=== PATIENT | female | born 1955 | race Caucasian/White ===

== ENCOUNTER → 2016-06-22 | Outpatient (CLI) | payer BC ==
--- NOTE | 2016-06-22 13:35 | MM ---
Reason for exam: clinical finding. Last mammogram was performed 1 year and 1 month ago. History: Patient is nulliparous. Family history of premenopausal breast cancer in maternal aunt at age 40. Benign ultrasound-guided cyst aspiration of the right breast, April 26, 1999. Took hormonal contraceptives for 6 years. Taking progesterone for 2 years beginning at age 53. Physical Findings: Nurse Summary: 0.5-1cm nodule in the right breast at 11 o'clock, 3 o'clock and 5 o'clock and a 0.5-2cm nodule in the left breast at 11-1 o'clock and 3-5 o'clock (nurse kp). MG 3D Diag Mammo W/Cad SEBASTIAN Bilateral CC and MLO view(s) were taken. Prior study comparison: June 11, 2015, bilateral US breast workup SEBASTIAN. May 25, 2015, bilateral MG 3d screening mammo w/cad. April 24, 2014, bilateral MG screening mammo w CAD. The breast tissue is heterogeneously dense. This may lower the sensitivity of mammography. There is chronic nodularity bilaterally. Enlarging large subareolar mass on the left breast superiorly. Regional calcifications redemonstrated in both breasts. A few nodules on the right breast have also increased in size. Multiple bilateral palpable markers. These results were verbally communicated with the patient and result sheet given to the patient on 06/22/16. ASSESSMENT: Incomplete: need additional imaging evaluation, BI-RAD 0 RECOMMENDATION: Ultrasound of both breasts.
--- NOTE | 2016-06-22 13:47 | USB ---
Reason for exam: additional evaluation requested from abnormal screening. History: Patient is nulliparous. Family history of premenopausal breast cancer in maternal aunt at age 40. Benign ultrasound-guided cyst aspiration of the right breast, April 26, 1999. Took hormonal contraceptives for 6 years. Taking progesterone for 2 years beginning at age 53. US Breast BILAT Right breast ultrasound includes all four quadrants, the retroareolar region and axilla. Finding demonstrates a 1.2 x 0.9 x 0.3cm cystic cluster versus complex cyst at 12 o'clock, new for which a 6 month follow up is recommended, a 0.5 x 0.4 x 0.5cm oval, cystic lesion at 1 o'clock, a 0.8 x 0.6 x 0.6cm oval, possible mildly complex cyst at 2 o'clock versus 7 x 7 x 6mm previously for which a 6 month follow up is recommended, a 1.4 x 0.7 x 0.6cm oval, cystic cluster or complex cyst at 3 o'clock, palpable, not previously seen for which a biopsy is recommended, a 1.0 x 1.3 x 0.7cm cluster, mixed lesion at 4 o'clock versus 9 x 6 x 5mm previously, palpable for which a biopsy is recommended, a 0.9 x 0.9 x 0.6cm cluster, mixed lesion at 5 o'clock for which a 6 month follow up is recommended , a 0.5 x 0.5 x 0.4cm cystic lesion at 8 o'clock, a 0.7 x 0.7 x 0.5cm cystic lesion at 10 o'clock and a 0.7 x 0.6 x 0.5cm cystic lesion at 11 o'clock, palpable. Left breast ultrasound includes all four quadrants, the retroareolar region and axilla. Finding demonstrates a 3.4 x 4.0 x 1.7cm large lobulated cyst at 12 o'clock, a 1.5 x 1.0 x 0.9cm oval, cystic lesion at 12 o'clock, a 1.3 x 0.8 x 0.6cm cyst cluster versus complex cyst at 1 o'clock for which a 6 month follow up is recommended, a 0.9 x 1.1 x 0.7cm oval cluster at 2 o'clock versus 7 x 9 x 6mm previously for which a 6 month follow up is recommended, a 0.8 x 0.3 x 0.4cm lobulated, hypoechoic lesion at 3 o'clock, new, for which a 6 month follow up is recommended, a 0.8 x 0.7 x 0.4cm oval, hypoechoic lesion at 5 o'clock, palpable , possibly a cyst but located deep for which a 6 month follow up is recommended and a 0.6 x 0.8 x 0.6cm cluster at 7 o'clock, new, for which a 6 month follow up is recommended. These results were verbally communicated with the patient and result sheet given to the patient on 06/22/16. ASSESSMENT: Suspicious, BI-RAD 4 RECOMMENDATION: 1. Surgical consultation and ultrasound core biopsy of the right breast. (2 palpable sites, 3 o'clock and 4 o'clock) 2. Ultrasound of both breasts in [address] Fraser with mammographic findings and has scheduled an appointment for the patient for 07/20/16 at 10:[address] Dooley. Biopsy scheduled for 07/07/16 at 11:20. PRELIMINARY REPORT CALLED AND FAXED TO DR. DOOLEY ON 06/22/16 AT 300/TP. MTDD
== END | disposition home or self-care (01) ==
LOC: RADMAMWWP 08:41
PROVIDERS: ATTEND Obstetrics & Gynecology
DX: N63 Unspecified lump in breast (principal); R92.8 Other abnormal and inconclusive findings on diagnostic imaging of breast; Z80.3 Family history of malignant neoplasm of breast
CPT/HCPCS: 76641; G0204; G0279

== ENCOUNTER → 2016-07-07 | Day surgery (SDC) | payer BC ==
[~2016-07-07] MED LIST: BACITRACIN OINT 1 EACH PACKET TOPICAL ONE; LIDOCAINE 1% INJ 10MG/ML (20 ML MDV) ONE; LIDOCAINE 1%-EPI 1:100,000 20 ML VIAL ONE
--- NOTE | 2016-07-07 12:02 | USB ---
EXAMINATION TYPE: US breast aspiration single RT DATE OF EXAM: 07/07/2016 COMPARISON: Previous ultrasound dated 06/22/2016 CLINICAL HISTORY: R92.8 ABN MAMMOGRAM. There is some benefits of the procedure were explained to the patient. Using standard sterile technique and 1% Xylocaine with and without epinephrine for anesthesia, a cluster of cysts in the 3:00 position of the right breast was aspirated for scant amount of clear fluid. The lesion disappeared. A second cluster in the 4:00 position in the right breast was also aspirated. The lesion disappeared. Contrast was not deposited as the lesion could not be identified following aspiration. Patient tolerated procedure well. Estimated blood loss was less than 1 cc. Pathology is pending. IMPRESSION: Successful cyst aspiration of 2 clusters of cysts in the 3 and 4:00 position of the right breast. RECOMMENDATION: Six-month ultrasound of the right breast Pathology Results: Benign BREAST, RIGHT, SITE A AT 3:00 AND 4:00, FINE NEEDLE CYST ASPIRATE: CYST MACROPHAGES, DUCT EPITHELIAL CELLS AND APOCRINE CELLS CONSISTENT WITH PROLIFERATIVE FIBROCYSTIC CHANGE. RECOMMEND CLINICAL AND IMAGING CORRELATION AND IF THE RESULTS ARE DISCREPANT, FOLLOW UP INDICATED. Recommendation Follow up ultrasound of the right breast in 6 months. GISSEL
== END ==
LOC: RADUSWWP 10:36
PROVIDERS: ATTEND Surgery
DX: N60.01 Solitary cyst of right breast (principal); R92.8 Other abnormal and inconclusive findings on diagnostic imaging of breast
CPT/HCPCS: 88108; 88305; 76942; 19000; J2001

== ENCOUNTER → 2017-07-27 | Outpatient (CLI) | payer BC ==
--- NOTE | 2017-07-30 07:21 | MM ---
Reason for exam: additional evaluation requested from prior study. Last mammogram was performed 1 year and 1 month ago. History: Patient is postmenopausal, has history of other cancer at age 49, and is nulliparous. Family history of premenopausal breast cancer in maternal aunt at age 40. Benign US breast aspiration single RT of the right breast, July 07, 2016. Benign ultrasound-guided cyst aspiration of the right breast, April 26, 1999. Took hormonal contraceptives for 6 years. Took progesterone for 2 years beginning at age 53. Physical Findings: Nurse did not find any significant physical abnormalities on exam. MG 3D Diag Mammo W/Cad SEBASTIAN Bilateral CC and MLO view(s) were taken. Prior study comparison: June 22, 2016, bilateral MG 3d diag mammo w/cad SEBASTIAN. May 25, 2015, bilateral MG 3d screening mammo w/cad. The breast tissue is heterogeneously dense. This may lower the sensitivity of mammography. No significant new findings when compared with previous films. These results were verbally communicated with the patient and result sheet given to the patient on 07/27/17. ASSESSMENT: Benign, BI-RAD 2 RECOMMENDATION: Routine screening mammogram of both breasts in 1 year.
== END | disposition home or self-care (01) ==
LOC: RADMAMWWP 14:51
PROVIDERS: ATTEND Surgery
DX: R92.8 Other abnormal and inconclusive findings on diagnostic imaging of breast (principal)
CPT/HCPCS: 77062; 77066

== ENCOUNTER → 2018-05-06 | Outpatient (CLI) | payer MEDICARE ==
[2018-05-06 18:03] LABS: LDL Cholesterol,Calculated 128.4 mg/dL (0.0-131.0); VLDL Calculation 13.6 mg/dL (5.00-40.00)
== END ==
LOC: LABWHC1 08:52
PROVIDERS: ATTEND Nurse Practitioner Adult Health
DX: E78.5 Hyperlipidemia, unspecified (principal)
CPT/HCPCS: 36415; 80061

== ENCOUNTER → 2019-09-18 | Outpatient (CLI) | payer MEDICARE ==
--- NOTE | 2019-09-22 08:54 | MM ---
Reason for exam: screening (asymptomatic). Last mammogram was performed 1 year and 1 month ago. History: Patient is postmenopausal, has history of other cancer at age 49, and is nulliparous. Family history of premenopausal breast cancer in maternal aunt at age 40. Benign US breast aspiration single RT of the right breast, July 07, 2016. Benign ultrasound-guided cyst aspiration of the right breast, April 26, 1999. Took hormonal contraceptives for 6 years. Took progesterone for 2 years beginning at age 53. Physical Findings: A clinical breast exam by your physician is recommended on an annual basis and results should be correlated with mammographic findings. MG 3D Screening Mammo W/Cad Bilateral CC and MLO view(s) were taken. Prior study comparison: August 07, 2018, bilateral MG 3d screening mammo w/cad. July 27, 2017, bilateral MG 3d diag mammo w/cad SEBASTIAN. The breast tissue is heterogeneously dense. This may lower the sensitivity of mammography. There is chronic nodularity bilaterally. Stable grouped calcifications lateral left breast. No significant changes when compared with prior studies. ASSESSMENT: Benign, BI-RAD 2 RECOMMENDATION: Routine screening mammogram of both breasts in 1 year.
== END | disposition home or self-care (01) ==
LOC: RADMAMWWP 12:31
PROVIDERS: ATTEND Obstetrics & Gynecology
DX: Z12.31 Encounter for screening mammogram for malignant neoplasm of breast (principal)
CPT/HCPCS: 77063; 77067

== ENCOUNTER 2020-09-26 08:59 | Emergency (ER) | payer MEDICARE ==
[2020-09-26 09:37] VITALS: RESP 16
[2020-09-26] MEDS ORDERED: LIDOCAINE 5% PATCH TOPICAL STA (10:35)
[2020-09-26] MEDS ORDERED: KETOROLAC 15 MG/ML 1 ML VIAL IM STA (10:35)
--- NOTE | 2020-09-26 10:47 | ED ---
Back Pain HPI - General Chief Complaint: Back Pain/Injury Stated Complaint: Sciatic Nerve Pain Time Seen by Provider: 09/26/20 10:18 Source: patient Limitations: no limitations - History of Present Illness Initial Comments: 65-year-old female with history of chronic back pain presenting to the emergency department with a chief complaint of back pain. Patient reports the pain has been ongoing for approximately 5 days now. States that day prior to that she was working on the yard, cutting grass and spraying weeds which may have exacerbated her pain. States her pain is located in the right paraspinal region of the lumbar spine and is radiating down along the posterior aspect of her right lower extremity. States the pain is exacerbated with any left and right rotation. Also worse whenever she is laying down. She went to an urgent care where she was given prednisone and discharge with no improvement in symptoms. States she went to her primary care physician who gave her mobic and no improvement in symptoms. States she is currently waiting insurance approval to obtain an MRI of the lumbar spine. She denies any direct trauma to the back. Denies any saddle anesthesia, urinary or bowel incontinence. - Related Data Home Medications Medication Instructions Recorded Confirmed Cetirizine HCl [Zyrtec Chewable] 10 mg PO DAILY 01/21/14 01/23/14 Cyclobenzaprine [Flexeril] 10 mg PO BID 01/21/14 01/23/14 HYDROcodone/APAP 5-325MG [[place] 5] 1 each PO Q6HR PRN 01/21/14 01/23/14 estradioL [Estrace] 0.5 mg PO DAILY 01/21/14 01/23/14 medroxyPROGESTERone [Provera] 2.5 mg PO DAILY 01/21/14 01/23/14 Previous Rx's Medication Instructions Recorded Cyclobenzaprine [Flexeril] 5 mg PO TID PRN #15 tablet 09/26/20 Allergies Allergy/AdvReac Type Severity Reaction Status Date / Time No Known Allergies Allergy Verified 01/23/14 10:49 Review of Systems ROS Statement: Those systems with pertinent positive or pertinent negative responses have been documented in the HPI. ROS Other: All systems not noted in ROS Statement are negative. Past Medical History Past Medical History: Supraventricular Tachycardia (SVT) History of Any Multi-Drug Resistant Organisms: None Reported Additional Past Surgical History / Comment(s): cardiac ablation 2004 Smoking Status: Former smoker Past Alcohol Use History: None Reported Past Drug Use History: None Reported General Exam Limitations: no limitations General appearance: alert, in no apparent distress Head exam: Present: atraumatic, normocephalic, normal inspection Eye exam: Present: normal appearance Pupils: Present: normal accommodation ENT exam: Present: normal exam, normal oropharynx, mucous membranes moist Neck exam: Present: normal inspection, full ROM. Absent: tenderness, lymphadenopathy Respiratory exam: Present: normal lung sounds bilaterally. Absent: respiratory distress Cardiovascular Exam: Present: regular rate, normal rhythm, normal heart sounds. Absent: systolic murmur GI/Abdominal exam: Present: soft. Absent: tenderness, guarding, rebound Extremities exam: Present: normal inspection, full ROM, normal capillary refill. Absent: tenderness Back exam: Present: normal inspection, full ROM, tenderness, paraspinal tenderness, other (Positive leg raise test on the right side.). Absent: CVA tenderness (R), CVA tenderness (L), muscle spasm, vertebral tenderness Neurological exam: Present: alert, oriented X3 Psychiatric exam: Present: normal affect, normal mood Skin exam: Present: warm, dry, intact, normal color Course Vital Signs 09/26/ 09:34 Temperature 98.0 F Pulse Rate 68 Respiratory 16 Rate Blood Pressure 122/70 O2 Sat by Pulse 98 Oximetry Medical Decision Making - Medical Decision Making 65-year-old female with history of chronic back pain presenting to the emergency department with a chief complaint of back pain. On physical examination, right- sided paraspinal tenderness in the lumbar spine radiating along the right lower extremity. Sciatica-like pattern. This is her acute on chronic pain. No concern for cauda equina. Patient was given Toradol which she requested. Also given Lidoderm patch. This helped improve her symptoms. I will discharge her with a Flexeril starter pack. We'll also give a prescription for Flexeril. X- ray of the lumbar spine is unremarkable. She has an MRI of the spine pending. Patient will follow-up with an verifying specialist. Return parameters were thoroughly discussed with patient is attending agreeable. Disposition Clinical Impression: Strain of lumbar region, Mechanical back pain Disposition: HOME SELF-CARE Condition: Stable Instructions (If sedation given, give patient instructions): Acute Low Back Pain (ED) Additional Instructions: Follow-up with verifying specialist. Take prescribed medication as directed. Return to emergency department if symptoms worsen. Prescriptions: Cyclobenzaprine [Flexeril] 5 mg PO TID PRN #15 tablet PRN Reason: Muscle Spasm Is patient prescribed a controlled substance at d/c from ED?: No Referrals: Tera Oden MD [Primary Care Provider] - 1-2 days Paul Bass DO [Doctor of Osteopathic Medicine] - 1-2 days Time of Disposition: 11:27
--- NOTE | 2020-09-26 10:59 | XR ---
EXAMINATION TYPE: XR lumbar spine 2 or 3V DATE OF EXAM: 09/26/2020 CLINICAL HISTORY: pain TECHNIQUE: Three views of the lumbar spine are submitted. COMPARISON: None. FINDINGS: There are 5 lumbar type vertebral bodies identified. The lumbar spine shows satisfactory alignment w ithout evidence of acute fracture or dislocation. Vertebral body heights are within normal limits. Mild degenerative disc space narrowing. Mild ventral spondylosis. The overlying soft tissue appears unremarkable. IMPRESSION: No acute fracture or dislocation is seen in the lumbar spine. ICD 10 NO FRACTURE, INITIAL EVALUATION
[2020-09-26] MEDS ORDERED: CYCLOBENZAPRINE 10MG STARTER 3 TAB BTL PO STA (11:25)
[2020-09-26 12:04] VITALS: BP 124/72; PULSE 74; TEMP 98.3
== END 2020-09-26 12:04 | disposition home or self-care (01) ==
LOC: EC 08:59
DX: S39.012A Strain of muscle, fascia and tendon of lower back, initial encounter (principal); Z87.891 Personal history of nicotine dependence; Z79.899 Other long term (current) drug therapy; X58.XXXA Exposure to other specified factors, initial encounter
CPT/HCPCS: 72100; 96372; 99283; J1885

== ENCOUNTER → 2020-11-26 | Outpatient (CLI) | payer MEDICARE ==
--- NOTE | 2020-11-29 11:56 | MM ---
Reason for exam: screening (asymptomatic). Last mammogram was performed 1 year and 2 months ago. History: Patient is postmenopausal, has history of other cancer at age 49, and is nulliparous. Family history of premenopausal breast cancer in maternal aunt at age 40. Benign US breast aspiration single RT of the right breast, July 07, 2016. Benign ultrasound-guided cyst aspiration of the right breast, April 26, 1999. Took hormonal contraceptives for 6 years. Took progesterone for 2 years beginning at age 53. Physical Findings: A clinical breast exam by your physician is recommended on an annual basis and results should be correlated with mammographic findings. MG 3D Screening Mammo W/Cad Bilateral CC and MLO view(s) were taken. Prior study comparison: September 18, 2019, bilateral MG 3d screening mammo w/cad. August 07, 2018, bilateral MG 3d screening mammo w/cad. The breast tissue is heterogeneously dense. This may lower the sensitivity of mammography. Stable benign calcifications upper outer quadrant. There is no discrete abnormality. No significant changes when compared with prior studies. ASSESSMENT: Benign, BI-RAD 2 RECOMMENDATION: Routine screening mammogram of both breasts in 1 year.
== END | disposition home or self-care (01) ==
LOC: RADMAMWWP 08:44
PROVIDERS: ATTEND Obstetrics & Gynecology
DX: Z12.31 Encounter for screening mammogram for malignant neoplasm of breast (principal); Z80.3 Family history of malignant neoplasm of breast
CPT/HCPCS: 77063; 77067

== ENCOUNTER → 2021-04-14 | Outpatient (CLI) | payer MEDICARE ==
--- NOTE | 2021-04-14 11:56 | XR ---
EXAMINATION TYPE: XR chest 2V DATE OF EXAM: 04/14/2021 COMPARISON: NONE TECHNIQUE: PA and lateral views submitted. HISTORY: Pain FINDINGS: The lungs are clear and there is no pneumothorax, pleural effusion, or focal pneumonia. There is a lobulated margin of the left hilum. Hyperinflation suggests COPD. Hypertrophic change of the spine. M ild hyperinflation. Heart size normal. No overt failure. IMPRESSION: 1. Lobulated margins in the left hilum. Recommend CT chest to exclude mass or adenopathy. 2. COPD.
== END | disposition home or self-care (01) ==
LOC: RADXRMAIN 11:38
PROVIDERS: ATTEND Family Medicine
DX: J44.9 Chronic obstructive pulmonary disease, unspecified (principal); R91.8 Other nonspecific abnormal finding of lung field
CPT/HCPCS: 71046

== ENCOUNTER → 2021-04-22 | Outpatient (CLI) | payer MEDICARE ==
--- NOTE | 2021-04-27 11:16 | USB ---
Reason for exam: clinical finding. History: Patient is postmenopausal, has history of other cancer at age 49, and is nulliparous. Family history of premenopausal breast cancer in maternal aunt at age 40. Benign US breast aspiration single RT of the right breast, July 07, 2016. Benign ultrasound-guided cyst aspiration of the right breast, April 26, 1999. Took hormonal contraceptives for 6 years. Took progesterone for 2 years beginning at age 53. Indicated problem(s): pain in the left breast. Physical Findings: A clinical breast exam by your physician is recommended on an annual basis and results should be correlated with mammographic findings. US Breast LT Left complete breast ultrasound includes all four quadrants, the retroareolar region and axilla. Finding demonstrates a 0.5 x 0.3 x 0.4cm round, cystic lesion at 1 o'clock, simple cyst, a 0.6 x 0.3 x 0.4cm mixed lesion at 3 o'clock, too small to characterize, probable debris filled cyst and a 0.4 x 0.3 x 0.4cm cystic lesion at 7 o'clock, simple cyst. ASSESSMENT: Probably benign, BI-RAD 3 RECOMMENDATION: Ultrasound of the left breast in 6 months. Manage on a clinical basis with regard to pain.
== END | disposition home or self-care (01) ==
LOC: RADUSWWP 08:15
PROVIDERS: ATTEND Family Medicine
DX: N64.4 Mastodynia (principal); Z78.0 Asymptomatic menopausal state; Z80.3 Family history of malignant neoplasm of breast

== ENCOUNTER → 2021-04-25 | Outpatient (CLI) | payer MEDICARE ==
--- NOTE | 2021-04-25 08:55 | CT ---
EXAMINATION TYPE: CT chest wo con DATE OF EXAM: 04/25/2021 INDICATION: Nodule CT DLP: 478 mGy.cm Automated Exposure Control for Dose Reduction was Utilized. TECHNIQUE AND CONTRAST: CT scan of the chest is performed without IV contrast administration. COMPARISON: X-ray dated 04/14/2021 FINDINGS: 8 mm pleural-based nodule is seen at the medial aspect of the right lower lobe, best appreciated in i mage #49, series 5. Unremarkable lungs otherwise. Patent central airways. No pleural or pericardial e ffusion. No gross cardiomegaly. Scattered arterial atherosclerotic calcifications with minimal pérez ry arterial calcifications. No pathologically lymph nodes in the chest. Bilateral thyroid lobe densities, please correlate with t hyroid ultrasound results. Scattered hepatic hypodensities likely representing hepatic cysts. Recomme nd correlation with liver ultrasound results. No gross aggressive bone lesion. IMPRESSION: Right lower lobe pleural-based 8mm nodule as described above, for follow-up CT scan in 3 months for r eassessment. Other incidental findings and recommendations as described above.
== END | disposition home or self-care (01) ==
LOC: RADCTMAIN 07:00
PROVIDERS: ATTEND Family Medicine
DX: R91.1 Solitary pulmonary nodule (principal)
CPT/HCPCS: 71250

== ENCOUNTER → 2021-05-17 | Outpatient (CLI) | payer MEDICARE ==
--- NOTE | 2021-05-17 12:07 | US ---
EXAMINATION TYPE: US abdomen complete DATE OF EXAM: 05/17/2021 COMPARISON: Chest CT 04/25/2021 CLINICAL HISTORY: 66-year-old female D13.4. Liver cyst on CT scan TECHNIQUE: Multiple sonographic images of the abdomen are obtained. FINDINGS: EXAM MEASUREMENTS: Liver Length: 13 cm Gallbladder Wall: .2 cm CBD: .5 cm Spleen: .8 cm Right Kidney: 9.9 x 3.8 x 4.6 cm Left Kidney: 11.0 x 5.6 x 3.7 cm Pancreas: wnl Liver: Anechoic area measuring 1.2 x 1.0 x 1.4 cm at the right hepatic dome. A 1.2 cm cyst anterior left liver lobe. Gallbladder: wnl Evidence for sonographic Romeo's sign: No CBD: wnl Spleen: wnl Right Kidney: wnl Left Kidney: wnl Upper IVC: wnl Abd Aorta: wnl IMPRESSION: A benign 1.4 cm cyst is noted at the right hepatic dome and a 1.2 cm cyst in the left liver lobe. Oth er hypodense lesions seen on CT not well depicted by ultrasound but also likely represent cysts. No gallstones or biliary ductal dilatation.
== END | disposition home or self-care (01) ==
LOC: RADUSWWP 09:36
PROVIDERS: ATTEND Family Medicine
DX: K76.89 Other specified diseases of liver (principal)
CPT/HCPCS: 76700

== ENCOUNTER → 2021-11-08 | Outpatient (CLI) | payer MEDICARE ==
--- NOTE | 2021-11-08 09:36 | CT ---
EXAMINATION TYPE: CT chest wo con CT DLP: 170.90 mGycm, Automated exposure control for dose reduction was used. DATE OF EXAM: 11/08/2021 9:24 AM COMPARISON: CT chest 04/25/2021. CLINICAL INDICATION:Female, 66 years old with history of R91.1 pulmonary nodule; TECHNIQUE: Multiple axial images were obtained through the chest without IV contrast. Lack of IV or o ral contrast limits evaluation of solid and hollow organ viscera. FINDINGS: LUNGS/ PLEURA: No pneumothorax, pleural effusion, or focal consolidation. Left upper lobe 4.4 mm nonc alcified pulmonary nodule which is stable from prior examination (series 4, image 23). Stable [address] eural-based nodule along the medial aspect of the right lower lobe (series 4, image 37). No new pulm onary nodules. AIRWAY: Patent and unremarkable.. HEART: Size within normal limits. No pericardial effusion. Minimal coronary artery calcifications. MEDIASTINUM: No gross evidence of adenopathy. VASCULATURE: No aortic aneurysm. MUSCULOSKELETAL: No acute osseous abnormalities SOFT TISSUES/LYMPH NODES: Unremarkable. LOWER NECK: Subcentimeter hypodense nodules within the thyroid gland. UPPER ABDOMEN: Stable scattered hepatic hypodensities likely representing hepatic cysts. This can be further evaluated with ultrasound as clinically indicated. IMPRESSION: Stable pulmonary nodules from prior examination on 04/25/2021. No new or enlarging pulmonary nodules. Follow-up examination in one year is recommended to assess for stability.
== END | disposition home or self-care (01) ==
LOC: RADCTMAIN 08:40
PROVIDERS: ATTEND Family Medicine
DX: R91.8 Other nonspecific abnormal finding of lung field (principal)
CPT/HCPCS: 71250

== ENCOUNTER → 2021-11-10 | Outpatient (CLI) | payer MEDICARE ==
--- NOTE | 2021-11-10 10:46 | USB ---
Reason for Exam: Follow-up at short interval from prior study. Patient History: Menarche at age 11. Patient has no children. Right ovary removed at age 53. Postmenopausal. Other cancer, age 49. Progesterone, starting at age 53 for 2 years. Patient used Hormonal Contraceptives for 6 years. 07/07/2016, Benign Cyst Aspiration on the right side. 04/26/1999, Benign Ultrasound-Guided Cyst Aspiration on the right side. Maternal aunt had breast cancer, age 40. Risk Values: Francine 5 year model risk: 2.0%. NCI Lifetime model risk: 7.3%. Technique: Method: Targeted. Prior Study Comparison: 08/07/2018 Bilateral Screening Mammogram, [facility]. 09/18/2019 Bilateral Screening Mammogram, [facility]. 11/26/2020 Bilateral Screening Mammogram, [facility]. Findings: The lateral section of the breast of the left breast, the axilla of the left breast and the retroareolar of the left breast were scanned. Limited ultrasound of the left breast evaluating the retroareolar region and axilla and 12:00 through 7:00 position. Finding demonstrates a 0.4 x 0.3 x 0.5 cm round, cystic lesion at 1:00 3 cm from the nipple with a simple cyst unchanged. Elongated mixed lesion at 3:00 2 cm from the nipple measuring 0.9 x 0.3 x 0.6 cm which may represent a debris-filled cyst, not significant changed. And a 0.7 x 0.4 x 0.6 cm slightly increased size simple cyst at 7:00 2 cm from the nipple. Overall Assessment: Probably benign, BI-RAD 3 Management: Diagnostic Breast Ultrasound of the left breast in 6 months. A clinical breast exam by your physician is recommended on an annual basis and results should be correlated with mammographic findings. Electronically signed and approved by: Tony Mason D.O.
== END | disposition home or self-care (01) ==
LOC: RADUSWWP 10:12
PROVIDERS: ATTEND Family Medicine
DX: N60.02 Solitary cyst of left breast (principal)

== ENCOUNTER → 2021-12-28 | Outpatient (CLI) | payer MEDICARE ==
--- NOTE | 2021-12-28 16:11 | MM ---
Reason for Exam: Screening (asymptomatic). Last mammogram was performed 1 year(s) and 1 month(s) ago. Patient History: Menarche at age 11. Patient has no children. Right ovary removed at age 53. Postmenopausal. Other cancer, age 49. Progesterone, starting at age 53 for 2 years. Patient used Hormonal Contraceptives for 6 years. 07/07/2016, Benign Cyst Aspiration on the right side. 04/26/1999, Benign Ultrasound-Guided Cyst Aspiration on the right side. Maternal aunt had breast cancer, age 40. Risk Values: Francine 5 year model risk: 2.0%. NCI Lifetime model risk: 7.3%. Prior Study Comparison: 06/22/2016 Bilateral Diagnostic Mammogram, [facility]. 07/27/2017 Bilateral Diagnostic Mammogram, [facility]. 08/07/2018 Bilateral Screening Mammogram, [facility]. 09/18/2019 Bilateral Screening Mammogram, [facility]. 11/26/2020 Bilateral Screening Mammogram, [facility]. Tissue Density: There are scattered fibroglandular densities. Findings: Analyzed By CAD. There is no suspicious group of microcalcifications or new suspicious mass in either breast. Overall Assessment: Negative, BI-RAD 1 Management: Screening Mammogram of both breasts in 1 year. A clinical breast exam by your physician is recommended on an annual basis and results should be correlated with mammographic findings. [facility] will attempt to contact patient to return for supplemental views and ultrasound if indicated. Electronically signed and approved by: Colin Flores DO
== END | disposition home or self-care (01) ==
LOC: RADMAMWWP 10:01
PROVIDERS: ATTEND Family Medicine
DX: Z12.31 Encounter for screening mammogram for malignant neoplasm of breast (principal); Z78.0 Asymptomatic menopausal state; Z80.3 Family history of malignant neoplasm of breast; Z90.721 Acquired absence of ovaries, unilateral
CPT/HCPCS: 77063; 77067

== ENCOUNTER → 2022-06-14 | Outpatient (CLI) | payer MEDICARE ==
--- NOTE | 2022-06-14 11:36 | USB ---
Reason for Exam: Follow-up at short interval from prior study. Patient History: Menarche at age 11. Patient has no children. Right ovary removed at age 53. Postmenopausal. Other cancer, age 49. Progesterone, starting at age 53 for 2 years. Patient used Hormonal Contraceptives for 6 years. 07/07/2016, Benign Cyst Aspiration on the right side. 04/26/1999, Benign Ultrasound-Guided Cyst Aspiration on the right side. Maternal aunt had breast cancer, age 40. Risk Values: Francine 5 year model risk: 2.1%. NCI Lifetime model risk: 7.0%. Technique: Method: Targeted. Prior Study Comparison: 09/18/2019 Bilateral Screening Mammogram, [facility]. 11/26/2020 Bilateral Screening Mammogram, [facility]. 12/28/2021 Bilateral MG 3D screening mammo w/cad, [facility]. Findings: The upper section of the breast of the left breast, the lower outer quadrant of the left breast, the axilla of the left breast and the retroareolar of the left breast were scanned. Targeted ultrasound of the left breast from 1-7 o'clock was a phoned additional evaluation of the axilla and nipple. There are 3 stable anechoic likely cysts identified within the left breast with the first at 1:00 3 size of the nipple measuring 0.4 x 0.2 x 0.4 cm. No internal vascular flow identified. The next is at 3:00 3 cm from the nipple measuring 0.3 x 0.3 x 0.4 cm. No internal color flow. Posterior acoustic enhancement identified. The final cysts is demonstrated at 7:00 2 cm the nipple measuring 0.6 x 0.4 x 0.4 cm with posterior acoustic enhancement. No internal color flow.Targeted ultrasound of the left breast from 1-7 o'clock was a phoned additional evaluation of the axilla and nipple. There are 3 stable anechoic likely cysts identified within the left breast with the first at 1:00 3 size of the nipple measuring 0.4 x 0.2 x 0.4 cm. No internal vascular flow identified. The next is at 3:00 3 cm from the nipple measuring 0.3 x 0.3 x 0.4 cm. No internal color flow. Posterior acoustic enhancement identified. The final cyst is demonstrated at 7:00 2 cm the nipple measuring 0.6 x 0.4 x 0.4 cm with posterior acoustic enhancement. No internal color flow. Overall Assessment: Benign, BI-RAD 2 Management: Screening Mammogram of both breasts in 6 months. A clinical breast exam by your physician is recommended on an annual basis and results should be correlated with mammographic findings. This exam should not preclude additional follow-up of suspicious palpable abnormalities. Results were given to the patient verbally at the time of exam. Electronically signed and approved by: Tony Mason D.O.
== END | disposition home or self-care (01) ==
LOC: RADUSWWP 10:46
PROVIDERS: ATTEND Family Medicine
DX: R92.8 Other abnormal and inconclusive findings on diagnostic imaging of breast (principal); Z78.0 Asymptomatic menopausal state; Z80.3 Family history of malignant neoplasm of breast

== ENCOUNTER 2022-07-21 09:35 | Day surgery (SDC) | payer MEDICARE ==
--- NOTE | 2022-07-20 18:54 | HP ---
HISTORY AND PHYSICAL CHIEF COMPLAINT: Chronic fluid in the ears. HISTORY OF PRESENT ILLNESS: This patient is a 67-year-old female, who was recently seen in my office complaining of having a plugged sensation in both ears. The patient stated that when she talks, it felt as if she was talking with her head stuck in a barrel or as if she had been flying in an airplane. She was placed on a course of steroids for 10 days and upon returning to the office, she noted that there was no significant change in her ears. Clinical examination of the ears revealed chronic bilateral serous otitis media, so called glue ear. It was therefore recommended that the patient undergo a bilateral myringotomy with insertion of ventilation tubes under IV sedation with MAC. PAST MEDICAL HISTORY: Reveals the patient has no known allergies to medications. CURRENT MEDICATIONS: 1. Prozac. 2. [place]. REVIEW OF SYSTEMS: Reveals that the musculoskeletal system is positive for osteoarthritis. The remainder of the review of systems is unremarkable. PREVIOUS SURGERIES: Include arthroscopic surgery of the left knee (she did not have a total knee replacement), removal of basal cell carcinoma on her back, surgery for endometriosis, functional endoscopic sinus surgery, heart ablation for atrial fibrillation. PHYSICAL EXAMINATION: GENERAL: This patient is a 67-year-old female, who is alert and cooperative. HEENT: The patient is normocephalic. Both tympanic membranes are dull with evidence of fluid in both middle ear spaces. Pupils are equal, round, and reactive to light and accommodation. Extraocular movements are within normal limits. Intranasal examination reveals [id number]-yx-[id number] septal deviation with compensatory hypertrophy of the inferior turbinates and a moderate amount of mucus on the mucous membrane and draining down the posterior pharyngeal wall. Examination of the oropharynx and the remainder of the head and neck exam is within normal limits. CHEST/CARDIOVASCULAR: Both lung nunez are clear to percussion and auscultation. The patient is in regular sinus rhythm. S1 and S2 are present without any murmurs, S3s, or S4s. Peripheral pulses are bilaterally symmetrical. ABDOMEN: There is no evidence any masses, megaly, or tenderness. The abdomen is soft. SKIN: Unremarkable. MUSCULOSKELETAL AND NEUROLOGICAL: Within normal limits. PELVIC AND RECTAL: Deferred at this time because she has it done on a regular basis at her family physician's office. Remainder of physical exam is unremarkable. IMPRESSION: Chronic bilateral serous otitis media. PLAN: The patient is scheduled to undergo bilateral myringotomy with insertion of ventilation tubes under IV sedation with MAC, dependent upon Anesthesia department's preference. Attention RNs in the pre-surgical area. I have not ordered any pre-surgical prophylactic antibiotics for this patient. If the Pharmacy department sends any pre- surgical prophylactic antibiotics to the pre-surgical area for this patient, please cancel that order and return the medication to the Pharmacy department. Also make sure that the patient's account is credited appropriately. I have discussed the risks, benefits and alternative therapies for the above-mentioned procedure and for both sedation/analgesia as well as necessary blood product administration, if indicated, as they pertain to this patient. The patient has indicated his or her understanding and acceptance of the risks and procedures discussed. MMODL / IJN: [id number] /
[~2022-07-21 09:35] MED LIST changes: -BACITRACIN OINT 1 EACH PACKET TOPICAL ONE; -LIDOCAINE 1% INJ 10MG/ML (20 ML MDV) ONE; -LIDOCAINE 1%-EPI 1:100,000 20 ML VIAL ONE; +Pre Op ABX Message 1 EACH MISC MISCELLANE ONE
[2022-07-21] MEDS ORDERED: MIDAZOLAM 2 MG/2 ML VIAL IV PRN (09:46)
[2022-07-21] MEDS ORDERED: HYDROmorphone 0.5 MG/0.5 ML SYRINGE IVP PRN (09:46)
[2022-07-21] MEDS ORDERED: DEXAMETHASONE SOD PHOSPHATE 4 MG/ML 1 ML VIAL IV ONE (09:46)
[2022-07-21] MEDS ORDERED: ONDANSETRON 4 MG/2 ML VIAL IVP ONE (09:46)
[2022-07-21] MEDS ORDERED: LACTATED RINGERS 1,000 ML IV SCH (09:46)
[2022-07-21 09:57] VITALS: TEMP 97.4
[2022-07-21] MEDS ORDERED: LACTATED RINGERS 1,000 ML IV ONE (09:58)
[2022-07-21] MEDS ORDERED: PROPOFOL 10 MG/ML 20 ML VIAL IV ONE (12:32)
[2022-07-21] MEDS ORDERED: MIDAZOLAM 2 MG/2 ML VIAL ONE (12:32)
[2022-07-21] MEDS ORDERED: fentaNYL (PF) 50 MCG/ML 2 ML AMP ONE (12:32)
[2022-07-21] MEDS ORDERED: OFLOXACIN 0.3% OPHTH DROPS 5 ML BOTTLE BOTH EARS ONE (12:40)
[2022-07-21 13:11] VITALS: RESP 14
[2022-07-21 13:27] VITALS: BP 118/76; PULSE 65
--- NOTE | 2022-07-25 01:19 | OP ---
OPERATIVE REPORT DATE OF SERVICE : PREOPERATIVE DIAGNOSIS: Chronic bilateral serous otitis media. POSTOPERATIVE DIAGNOSIS: Chronic bilateral serous otitis media. ANESTHESIA: IV sedation with MAC. PROCEDURE PERFORMED: Bilateral myringotomy, insertion of plastic Yan-Bobbin ventilation tubes. COMPLICATIONS: None. DESCRIPTION OF PROCEDURE: The patient was placed on the Operating table in the supine position after uneventful induction and IV sedation, satisfactory general anesthesia was obtained. Next, the operating microscope was brought into position over the patient's right ear where after insertion of a #3 aural speculum, the external canal was cleansed of all wax and debris. The myringotomy knife was used to make an incision in the anterior inferior quadrant of the right tympanic membrane. The middle ear space was suctioned free of all fluid and a 1.1 mm Yan bobbin ventilation tube was inserted without any difficulty. Attention was then directed to the left ear where the same procedure was carried out using the operating microscope, #3 aural speculum, the external auditory canal was cleansed of all wax and debris. The myringotomy knife was used to make an incision in the anterior inferior quadrant of the left tympanic membrane and the middle ear space was suctioned free of all fluid. A 1.1 mm Yan bobbin ventilation tube was inserted without any difficulty. At this point, the procedure was terminated. There were no intraoperative complications. The patient tolerated the procedure well and was returned to the Recovery Room in satisfactory condition. MMODL / IJN: [id number] /
== END 2022-07-21 13:37 | disposition home or self-care (01) ==
LOC: OR 09:35
PROVIDERS: ATTEND Otolaryngology
DX: H65.23 Chronic serous otitis media, bilateral (principal); I47.1 Supraventricular tachycardia; F41.9 Anxiety disorder, unspecified; Z79.01 Long term (current) use of anticoagulants; Z79.1 Long term (current) use of non-steroidal anti-inflammatories (NSAID); Z79.52 Long term (current) use of systemic steroids; Z79.899 Other long term (current) drug therapy; Z98.890 Other specified postprocedural states
CPT/HCPCS: 69436; J1100; J2405

== ENCOUNTER → 2022-10-17 | Outpatient (CLI) | payer MEDICARE ==
[2022-10-17 15:05] LABS: African American GFR (CKD) >90 (>60 ml/min/1.73 sqM); Blood Urea Nitrogen 20 mg/dL (7-17); Non-African American GFR(CKD) 86 (>60 ml/min/1.73 sqM)
--- NOTE | 2022-10-24 16:54 | CT ---
EXAMINATION TYPE: CT iac w con DATE OF EXAM: 10/17/2022 COMPARISON: 04/17/2013 HISTORY: plugged ear, difficulty hearing since ear surgery 07/28 CT DLP: 300 mGycm Automated exposure control for dose reduction was used. TECHNIQUE: Contiguous high-resolution axial scanning of the temporal bones performed and with IV Con trast, patient injected with 100 cc mL of Isovue 300. Coronal reformatted images obtained. FINDINGS: There is no abnormality of visualized intracranial structures. There is some debris adherent to the wall of the left external auditory canal at the superficial most portion. The external auditory canals are otherwise patent. The middle ear cavities are well pneumatized. Bilateral myringotomy tubes are noted. Mastoid air cells well pneumatized. The adjacent dural venous sinus remains well opacified. There is no abnormality of middle ear ossicles. The round and oval windows are normal. There is no abnormality of bony labyrinths. The vestibular and cochlear aqueducts are well visualized. The facial nerve canal is normal bilaterally. The internal auditory canal and meati are symmetrical bilaterally. Old bilateral nasal bone fractures. No associated soft tissue swelling. Slight rightward nasal septal deviation. Paranasal sinuses are clear. Reformatted images confirm above findings. IMPRESSION: 1. Some debris adherent to the wall of the superficial portion of the left external auditory canal. 2. Bilateral myringotomy tubes. 3. No other specific abnormality identified on temporal bone CT.
== END | disposition home or self-care (01) ==
LOC: RADCTMAIN 14:19
PROVIDERS: ATTEND Otolaryngology
DX: H92.01 Otalgia, right ear (principal); Z96.22 Myringotomy tube(s) status
CPT/HCPCS: 82565; 84520; 70481; 36415; Q9967

== ENCOUNTER → 2023-01-15 | Outpatient (CLI) | payer MEDICARE ==
--- NOTE | 2023-01-16 21:22 | MM ---
Reason for Exam: Screening (asymptomatic). Last mammogram was performed 1 year(s) and 1 month(s) ago. Patient History: Menarche at age 11. Patient has no children. Postmenopausal. Other cancer, age 49. Progesterone, starting at age 53 for 2 years. Patient used Hormonal Contraceptives for 6 years. 07/07/2016, Benign Cyst Aspiration on the right side. 04/26/1999, Benign Ultrasound-Guided Cyst Aspiration on the right side. Maternal aunt had breast cancer, age 40. Risk Values: Francine 5 year model risk: 2.1%. NCI Lifetime model risk: 7.0%. Prior Study Comparison: 09/18/2019 Bilateral Screening Mammogram, [facility]. 11/26/2020 Bilateral Screening Mammogram, [facility]. 12/28/2021 Bilateral MG 3D screening mammo w/cad, [facility]. Tissue Density: The breast tissue is heterogeneously dense. This may lower the sensitivity of mammography. Findings: Analyzed By CAD. Areas of bilateral asymmetric density especially on the left CC view remain unchanged compatible with a benign etiology. There is no suspicious group of microcalcifications or new suspicious mass in either breast. Overall Assessment: Benign, BI-RAD 2 Management: Screening Mammogram of both breasts in 1 year. . Patient should continue monthly self-breast exams. A clinical breast exam by your physician is recommended on an annual basis. This exam should not preclude additional follow-up of suspicious palpable abnormalities. Note on Francine scores and lifetime risk: 1. A Francine score greater than 3% is considered moderate risk. If this is the case, consider specialist referral to assess eligibility for a risk reducing agent. 2. If overall lifetime risk for the development of breast cancer is 20% or higher, the patient may qualify for future screening with alternating mammogram and breast MRI. Electronically signed and approved by: Marvel Rosa M.D. Radiologist
== END | disposition home or self-care (01) ==
LOC: RADMAMWWP 15:40
PROVIDERS: ATTEND Family Medicine
DX: Z12.31 Encounter for screening mammogram for malignant neoplasm of breast (principal); Z78.0 Asymptomatic menopausal state; Z80.3 Family history of malignant neoplasm of breast; Z92.0 Personal history of contraception
CPT/HCPCS: 77063; 77067

== ENCOUNTER → 2024-01-22 | Outpatient (CLI) | payer MEDICARE ==
--- NOTE | 2024-01-23 09:51 | MM ---
Reason for Exam: Screening (asymptomatic). Last screening mammogram was performed 12 month(s) ago. Patient History: Menarche at age 11. Patient has no children. Postmenopausal. Other cancer, age 49. Progesterone, starting at age 53 for 2 years. Patient used Hormonal Contraceptives for 6 years. 07/07/2016, Benign Cyst Aspiration on the right side. 04/26/1999, Benign Ultrasound-Guided Cyst Aspiration on the right side. Maternal aunt had breast cancer, age 40. Risk Values: Francine 5 year model risk: 2.1%. NCI Lifetime model risk: 6.7%. Prior Study Comparison: 11/26/2020 Bilateral Screening Mammogram, [facility]. 12/28/2021 Bilateral MG 3D screening mammo w/cad, [facility]. 01/15/2023 Bilateral MG 3D screening mammo w/cad, [facility]. Tissue Density: The breasts are heterogeneously dense, which may obscure small masses. Findings: Analyzed By CAD. Right breast: There is no suspicious group of microcalcifications or new suspicious mass. Left breast: There is no suspicious group of microcalcifications or new suspicious mass. Overall Assessment: Negative, BI-RAD 1 Management: Screening Mammogram of both breasts in [address] [facility] will attempt to contact patient to return for supplemental views and ultrasound if indicated. Patient should continue monthly self-breast exams. A clinical breast exam by your physician is recommended on an annual basis. This exam should not preclude additional follow-up of suspicious palpable abnormalities. Note on Francine scores and lifetime risk: 1. A Francine score greater than 3% is considered moderate risk. If this is the case, consider specialist referral to assess eligibility for a risk reducing agent. 2. If overall lifetime risk for the development of breast cancer is 20% or higher, the patient may qualify for future screening with alternating mammogram and breast MRI. [facility], , 01/23/2024 9:49 AM. Electronically signed and approved by: Colin Flores DO
== END | disposition home or self-care (01) ==
LOC: RADMAMWWP 15:15
PROVIDERS: ATTEND Family Medicine
DX: Z12.31 Encounter for screening mammogram for malignant neoplasm of breast (principal); Z78.0 Asymptomatic menopausal state; Z80.3 Family history of malignant neoplasm of breast; R92.333 Mammographic heterogeneous density, bilateral breasts
CPT/HCPCS: 77063; 77067

== ENCOUNTER 2024-08-01 19:13 | Emergency (ER) | payer MEDICARE ==
--- NOTE | 2024-08-01 19:50 | ED ---
Extremity Problem HPI - General Source: patient Mode of arrival: ambulatory <Kathy Baldwin - Last Filed: 08/01/24 19:50> <Odell Conroy - Last Filed: 08/01/24 20:18> - General Chief complaint: Extremity Problem,Nontraumatic Stated complaint: R leg pain, near syncope Time Seen by Provider: 08/01/24 19:50 - History of Present Illness Initial comments: 69-year-old female presenting with chief complaint of right leg pain for the last 3 days. History of sciatic pain. No known injury or trauma. (Kathy Baldwin) Dictation was produced using [employer] dictation software. please excuse any grammatical, word or spelling errors. Chief Complaint: 69-year-old female sciatica History of Present Illness: Patient 69-year-old female with history of sciatica. 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 States that her pain originates from her right gluteus region and t ravels down the posterior leg. Patient takes anticoagulation medications. States that she has not had a sciatica flareup in quite some time. Denies any numbness tingling paresthesias in the right lower extremity. States that the pain shoots sharply from her right glute down her leg. The ROS documented in this emergency department record has been reviewed and confirmed by me. Those systems with pertinent positive or negative responses have been documented in the HPI. All other systems are other negative and/or noncontributory. (Odell Conroy) - Related Data Home Medications Medication Instructions Recorded Confirmed Cetirizine HCl [Zyrtec Chewable] 10 mg PO DAILY PRN 01/21/14 07/19/22 HYDROcodone/APAP 5-325MG [[place] 5] 1 each PO Q6HR PRN 01/21/14 07/19/22 ALPRAZolam [Xanax] 0.25 mg PO TID PRN 07/19/22 07/19/22 Apixaban [Eliquis] 5 mg PO BID 07/19/22 07/19/22 Fluvastatin Sodium [Fluvastatin ER] 80 mg PO HS 07/19/22 07/19/22 valACYclovir HCL [Valacyclovir] 1,000 mg PO DAILY PRN 07/19/22 07/19/22 Previous Rx's Medication Instructions Recorded HYDROcodone/APAP 5-325MG [[place] 1 tab PO Q6HR PRN 3 Days #12 tab 08/01/24 5-325] methylPREDNISolone Dose Pack 4 mg PO DIRECTED #1 packet 08/01/24 [Medrol Dose Pack] Allergies Allergy/AdvReac Type Severity Reaction Status Date / Time No Known Allergies Allergy Verified 08/01/24 19:43 Review of Systems ROS Other: All systems not noted in ROS Statement are negative. <Kathy Baldwin - Last Filed: 08/01/24 19:50> ROS Other: All systems not noted in ROS Statement are negative. <Odell Conroy - Last Filed: 08/01/24 20:18> ROS Statement: Those systems with pertinent positive or pertinent negative responses have been documented in the HPI. Past Medical History Past Medical History: Hyperlipidemia, Supraventricular Tachycardia (SVT) Additional Past Medical History / Comment(s): WAS ADMITTED TO [facility] ON 07/15/22 & D/C ON 07/17/22,WITH SVT (ALL LAB/TESTS NORMAL) STARTED ON ELIQUIS. NORMALLY HAS A SLOW HEART RATE. OTHER EPISODES OF SVT. History of Any Multi-Drug Resistant Organisms: None Reported Past Surgical History: Tubal Ligation Additional Past Surgical History / Comment(s): cardiac ablation 2004. SALIVA GLAND REMOVED. Past Anesthesia/Blood Transfusion Reactions: Postoperative Nausea & Vomiting (PONV) Past Psychological History: Anxiety Smoking Status: Former smoker Past Alcohol Use History: None Reported Past Drug Use History: None Reported - Past Family History Mother Family Medical History: Deep Vein Thrombosis (DVT) <Kathy Baldwin - Last Filed: 08/01/24 19:50> General Exam <Kathy Baldwin - Last Filed: 08/01/24 19:50> <Odell Conroy - Last Filed: 08/01/24 20:18> - General Exam Comments Initial Comments: Visual Physical Exam Vital signs reviewed General: Well-appearing, nontoxic, no acute distress. Head: Normocephalic, atraumatic Eyes: PERRLA, EOMI ENT: Airway patent Chest: Nonlabored breathing Skin: No visual rash, normal skin tone Neuro: Alert and oriented 3 Musculoskeletal: No gross abnormalities (Kathy Baldwin) PHYSICAL EXAM: General Impression: Alert and oriented x3, not in acute distress HEENT: Normocephalic atraumatic, extra-ocular movements intact, pupils equal and reactive to light bilaterally, mucous membranes moist. Cardiovascular: Heart regular rate and rhythm Chest: Able to complete full sentences, no retractions, no tachypnea Abdomen: abdomen soft, non-tender, non-distended, no organomegaly Musculoskeletal: Pulses present and equal in all extremities, no peripheral edema, palpatory tenderness over the right gluteus Motor: no focal deficits noted Neurological: CN II-XII grossly intact, no focal motor or sensory deficits noted Skin: Intact with no visualized rashes Psych: Normal affect and mood (Odell Conroy) Course Vital Signs 08/01/24 19:38 Temperature 97.6 F Pulse Rate 55 L Respiratory 18 Rate Blood Pressure 140/70 O2 Sat by Pulse 100 Oximetry Medical Decision Making <Kathy Baldwin - Last Filed: 08/01/24 19:50> <Odell Conroy - Last Filed: 08/01/24 20:18> - Medical Decision Making I performed the quick note portion of this visit, electronically signed Kathy Baldwin PA-C (Kathy Baldwin) Was pt. sent in by a medical professional or institution ([facility], SWING MANAGER, urgent care, hospital, or [facility]...) When possible be specific @ -No Did you speak to anyone other than the patient for history (EMS, parent, family, police, friend...)? What history was obtained from this source @ -No Did you review nursing and triage notes (agree or disagree)? Why? @ -I reviewed and agree with nursing and triage notes Were old charts reviewed (outside hosp., previous admission, EMS record, old EKG, old radiological studies, urgent care reports/EKG's, [facility] records)? Report findings @ -No old charts were reviewed Differential Diagnosis (chest pain, altered mental status, abdominal pain women, abdominal pain men, vaginal bleeding, musculoskeletal, weakness, fever, dyspnea, syncope, headache, dizziness, GI bleed, back pain, seizure, CVA, palpatations, mental health)? @ -Differential Back Pain: Strain, zoster, cauda equina syndrome, epidural abscess, vertebral osteomyelitis, discitis, fracture, subluxation, disc herniation, DJD, spinal stenosis, dissection, AAA, pancreatitis, peptic ulcer disease, pyelonephritis, kidney stone, this is not meant to be an all-inclusive list. EKG interpreted by me (3pts min.). @ -None done X-rays interpreted by me (1pt min.). @ -None done CT interpreted by me (1pt min.). @ -None done U/S interpreted by me (1pt. min.). @ -None done What testing was considered but not performed or refused? (CT, X-rays, U/S, labs)? Why? @ -None What meds were considered but not given or refused? Why? @ -None Was smoking cessation discussed for >3mins.? @ -No Were there social determinants of health that impacted care today? How? (Homelessness, low income, unemployed, alcoholism, drug addiction, transportation, low edu. Level, literacy, decrease access to med. care, detention, rehab)? @ -No Was there de-escalation of care discussed even if they declined (Discuss DNR or withdrawal of care, Hospice)? DNR status @ -No What co-morbidities impacted this encounter? (DM, HTN, Smoking, COPD, CAD, Cancer, CVA, ARF, Chemo, Hep., AIDS, mental health diagnosis, sleep apnea, morb id obesity)? @ -None Was patient admitted / discharged? Hospital course, mention meds given and route, prescriptions, significant lab abnormalities, going to OR and other pertinent info. @ -69-year-old female presents to the emergency department with atraumatic sciatica symptoms. Vital signs stable. Patient given analgesics along with steroid medications. Patient given prescriptions discharged advised follow-up with primary care doctor. Did you discuss the management of the patient with other professionals (professionals i.e. , PA, SWING MANAGER, lab, RT, psych nurse, oncology social work, bilingual speech therapist, teacher, ground intelligence officer, pillowcase cutter)? Give summary @ -No Was critical care preformed (if so, how long)? @ -No Undiagnosed new problem with uncertain prognosis? @ -No Drug Therapy requiring intensive monitoring for toxicity (Heparin, Nitro, Insulin, Cardizem)? @ -No Were any procedures done? @ -No Diagnosis/symptom? Acute, or Chronic, or Acute on Chronic? Uncomplicated (without systemic symptoms) or Complicated (systemic symptoms)? @ -Sciatica Side effects of treatment? @ -No Exacerbation, Progression, or Severe Exacerbation? @ -No Poses a threat to life or bodily function? How? (Chest pain, [place], CA, pneumonia, PE, COPD, DKA, ARF, appy, cholecystitis, CVA, Diverticulitis, Homicidal, Suicidal, threat to staff... and all critical care pts) @ -yes (Odell Conroy) Disposition <Kathy Baldwin - Last Filed: 08/01/24 19:50> Is patient prescribed a controlled substance at d/c from ED?: Yes If prescribed controlled substance>3 days was MAPS reviewed?: Prescribed <3 Days Time of Disposition: 20:18 <Odell Conroy - Last Filed: 08/01/24 20:18> Clinical Impression: Sciatica Disposition: HOME SELF-CARE Condition: Fair Instructions (If sedation given, give patient instructions): Sciatica (ED) Prescriptions: methylPREDNISolone Dose Pack [Medrol Dose Pack] 4 mg PO DIRECTED #1 packet HYDROcodone/APAP 5-325MG [[place] 5-325] 1 tab PO Q6HR PRN 3 Days #12 tab PRN Reason: Severe Pain Referrals: Colt Casper MD [Primary Care Provider] - 1-2 days
[2024-08-01] MEDS: MORPHINE SULFATE 2 MG/ML SYRINGE IM STA (20:35)
[2024-08-01] MEDS: KETOROLAC 15 MG/ML 1 ML VIAL IM STA (20:35)
[2024-08-01] MEDS: dexAMETHasone 2 MG TAB PO STA (20:36)
[2024-08-01 21:01] VITALS: BP 136/79; PULSE 61; RESP 16; TEMP 97.9
== END 2024-08-01 21:01 | disposition home or self-care (01) ==
LOC: EC 19:13
DX: M54.31 Sciatica, right side (principal); Z87.891 Personal history of nicotine dependence
CPT/HCPCS: 99283; 96372 ×2; J2270; J8540; J1885

== ENCOUNTER 2024-08-02 11:54 | Emergency (ER) | payer MEDICARE ==
[2024-08-02 12:12] VITALS: BP 103/65; PULSE 66; RESP 18; TEMP 97.8
--- NOTE | 2024-08-02 13:09 | ED ---
General Adult HPI - General Chief complaint: Back Pain/Injury Stated complaint: R side pain Time Seen by Provider: 08/02/24 12:44 Source: patient, RN notes reviewed, old records reviewed Mode of arrival: ambulatory Limitations: no limitations - History of Present Illness Initial comments: 69-year-old female presents for evaluation of right buttock pain radiating down her right leg. Patient was seen yesterday and diagnosed with sciatica. She has no bowel or bladder incontinence. No injury. No low back pain. No fever. Patient is on Eliquis and is unable to take nonsteroidal anti-inflammatories. She is currently on a Medrol Dosepak. She was prescribed [place] but states she cannot take this secondary to nausea. - Related Data Home Medications Medication Instructions Recorded Confirmed Cetirizine HCl [Zyrtec Chewable] 10 mg PO DAILY PRN 01/21/14 07/19/22 HYDROcodone/APAP 5-325MG [[place] 5] 1 each PO Q6HR PRN 01/21/14 07/19/22 ALPRAZolam [Xanax] 0.25 mg PO TID PRN 07/19/22 07/19/22 Apixaban [Eliquis] 5 mg PO BID 07/19/22 07/19/22 Fluvastatin Sodium [Fluvastatin ER] 80 mg PO HS 07/19/22 07/19/22 valACYclovir HCL [Valacyclovir] 1,000 mg PO DAILY PRN 07/19/22 07/19/22 Previous Rx's Medication Instructions Recorded HYDROcodone/APAP 5-325MG [[place] 1 tab PO Q6HR PRN 3 Days #12 tab 08/01/24 5-325] methylPREDNISolone Dose Pack 4 mg PO DIRECTED #1 packet 08/01/24 [Medrol Dose Pack] traMADol HCL 50 mg PO Q6H 3 Days #12 tab 08/02/24 Allergies Allergy/AdvReac Type Severity Reaction Status Date / Time No Known Allergies Allergy Verified 08/02/24 12:12 Review of Systems ROS Statement: Those systems with pertinent positive or pertinent negative responses have been documented in the HPI. ROS Other: All systems not noted in ROS Statement are negative. Past Medical History Past Medical History: Hyperlipidemia, Supraventricular Tachycardia (SVT) Additional Past Medical History / Comment(s): WAS ADMITTED TO [facility] ON 07/15/22 & D/C ON 07/17/22,WITH SVT (ALL LAB/TESTS NORMAL) STARTED ON ELIQUIS. NORMALLY HAS A SLOW HEART RATE. OTHER EPISODES OF SVT. History of Any Multi-Drug Resistant Organisms: None Reported Past Surgical History: Tubal Ligation Additional Past Surgical History / Comment(s): cardiac ablation 2004. SALIVA GLAND REMOVED. Past Anesthesia/Blood Transfusion Reactions: Postoperative Nausea & Vomiting (PONV) Past Psychological History: Anxiety Smoking Status: Former smoker Past Alcohol Use History: None Reported Past Drug Use History: None Reported - Past Family History Mother Family Medical History: Deep Vein Thrombosis (DVT) General Exam Limitations: no limitations General appearance: alert, in no apparent distress Head exam: Present: atraumatic, normocephalic Eye exam: Present: normal appearance, PERRL ENT exam: Present: normal exam Neck exam: Present: normal inspection. Absent: tenderness, meningismus Respiratory exam: Present: normal lung sounds bilaterally. Absent: respiratory distress Cardiovascular Exam: Present: regular rate, normal rhythm GI/Abdominal exam: Present: soft. Absent: distended, tenderness, guarding Extremities exam: Present: normal inspection, normal capillary refill. Absent: pedal edema Back exam: Absent: paraspinal tenderness, vertebral tenderness Neurological exam: Present: alert, oriented X3, CN II-XII intact. Absent: motor sensory deficit Psychiatric exam: Present: normal affect, normal mood Skin exam: Present: warm, dry, intact Course Vital Signs 08/02/24 12:09 Temperature 97.8 F Pulse Rate 66 Respiratory 18 Rate Blood Pressure 103/65 O2 Sat by Pulse 98 Oximetry Medical Decision Making - Medical Decision Making Was pt. sent in by a medical professional or institution (, PA, MAINFRAME SYSTEMS PROGRAMMER, urgent care, hospital, or halfway...) When possible be specific @ -No Did you speak to anyone other than the patient for history (EMS, parent, family, police, friend...)? What history was obtained from this source @ -No Did you review nursing and triage notes (agree or disagree)? Why? @ -I reviewed and agree with nursing and triage notes Were old charts reviewed (outside hosp., previous admission, EMS record, old EKG, old radiological studies, urgent care reports/EKG's, halfway records)? Report findings @ -No old charts were reviewed Differential Back Pain: Strain, zoster, cauda equina syndrome, epidural abscess, vertebral osteomyelitis, discitis, fracture, subluxation, disc herniation, DJD, spinal stenosis, dissection, AAA, pancreatitis, peptic ulcer disease, pyelonephritis, kidney stone, this is not meant to be an all-inclusive list. EKG interpreted by me (3pts min.). @ -As above X-rays interpreted by me (1pt min.). @ -None done CT interpreted by me (1pt min.). @ -None done U/S interpreted by me (1pt. min.). @ -None done What testing was considered but not performed or refused? (CT, X-rays, U/S, labs)? Why? @ -None What meds were considered but not given or refused? Why? @ -None Did you discuss the management of the patient with other professionals (professionals i.e. , PA, MAINFRAME SYSTEMS PROGRAMMER, lab, RT, psych nurse, oncology social work, pattern stamper, teacher, disbursing officer, major case detective)? Give summary @ -No Was smoking cessation discussed for >3mins.? @ -No Was critical care preformed (if so, how long)? @ -No Were there social determinants of health that impacted care today? How? (Homelessness, low income, unemployed, alcoholism, drug addiction, transportation, low edu. Level, literacy, decrease access to med. care, halfway, rehab)? @ -No Was there de-escalation of care discussed even if they declined (Discuss DNR or withdrawal of care, Hospice)? DNR status @ -No What co-morbidities impacted this encounter? (DM, HTN, Smoking, COPD, CAD, Cancer, CVA, ARF, Chemo, Hep., AIDS, mental health diagnosis, sleep apnea, morbid obesity)? @ -None Was patient admitted / discharged? Hospital course, mention meds given and route, prescriptions, significant lab abnormalities, going to OR and other pertinent info. @ -69-year-old female well-appearing with stable vitals presenting with pain in the right buttock radiating to the right leg consistent with sciatica. Patient cannot take [place]. She cannot take nonsteroidal anti-inflammatories secondary to being on Eliquis with history of A-fib. We discussed possibility of trial with tramadol and finishing her Dosepak of steroids. Follow-up with primary care. Undiagnosed new problem with uncertain prognosis? @ -No Drug Therapy requiring intensive monitoring for toxicity (Heparin, Nitro, Insulin, Cardizem)? @ -No Were any procedures done? @ -No Diagnosis/symptom? @ -[Sciatica Acute, or Chronic, or Acute on Chronic? @ -Acute Uncomplicated (without systemic symptoms) or Complicated (systemic symptoms)? @ -[default Side effects of treatment? @ -No Exacerbation, Progression, or Severe Exacerbation? @ -No Poses a threat to life or bodily function? How? (Chest pain, [place], [place], pneumonia, PE, COPD, DKA, ARF, appy, cholecystitis, CVA, Diverticulitis, Homicidal, Suicidal, threat to staff... and all critical care pts) @ -No Disposition Clinical Impression: Sciatica Disposition: HOME SELF-CARE Condition: Fair Instructions (If sedation given, give patient instructions): Sciatica (ED) Prescriptions: traMADol HCL 50 mg PO Q6H 3 Days #12 tab Is patient prescribed a controlled substance at d/c from ED?: No Referrals: Colt Casper MD [Primary Care Provider] - 1-2 days Time of Disposition: 13:09
[2024-08-02] MEDS: KETOROLAC 15 MG/ML 1 ML VIAL IM STA (13:33)
== END 2024-08-02 13:37 | disposition home or self-care (01) ==
LOC: EC 11:54
DX: M54.31 Sciatica, right side (principal); Z79.01 Long term (current) use of anticoagulants; Z87.891 Personal history of nicotine dependence
CPT/HCPCS: 99283; 96372; J1885

== ENCOUNTER → 2024-08-04 | Outpatient (CLI) | payer MEDICARE ==
--- NOTE | 2024-08-04 13:43 | XR ---
EXAMINATION TYPE: XR lumbar spine 2 or 3V DATE OF EXAM: 08/04/2024 1:23 PM COMPARISON: None. CLINICAL INDICATION: Female, 69 years old with history of M47.816 SPONDYLOSIS W/O MYELOPATHY OR RADIC ULOPATH, TECHNIQUE: Frontal, lateral, and oblique images of the lumbar spine are obtained. FINDINGS: There are 5 lumbar type vertebral bodies identified. The lumbar spine shows satisfactory alignment without evidence of acute fracture or dislocation. Vertebral body heights are within normal limits. Disc spaces are well preserved. The overlying soft tissue appears unremarkable. IMPRESSION: No acute fracture or dislocation is seen in the lumbar spine.ICD 10 NO FRACTURE, INITIAL EVALUATION [facility], , 08/04/2024 1:40 PM
== END | disposition home or self-care (01) ==
LOC: RADXRMAIN 13:04
DX: M47.816 Spondylosis without myelopathy or radiculopathy, lumbar region (principal)
CPT/HCPCS: 72100

== ENCOUNTER 2024-08-24 08:06 | Emergency (ER) | payer MEDICARE ==
[2024-08-24 08:19] VITALS: TEMP 97.6
[2024-08-24] MEDS: diphenhydrAMINE 50 MG/ML 1 ML VIAL IVP STA (09:50)
[2024-08-24] MEDS: ONDANSETRON 4 MG/2 ML VIAL IVP STA (09:51)
[2024-08-24] MEDS: MECLIZINE 12.5 MG TAB PO STA ×2 (09:52→13:08)
[2024-08-24] MEDS: ACETAMINOPHEN TAB 500 MG TAB PO STA (09:53)
[2024-08-24] MEDS: SODIUM CHLORIDE 0.9% 1,000 ML IV STA (09:54)
[2024-08-24 10:07] LABS: Basophils # (A) 0.04 10*3/uL (0.00-0.10); Basophils % (A) 0.5 %; Eosinophils # (A) 0.06 10*3/uL (0.04-0.35); Eosinophils % (A) 0.8 %; HCT 41.4 % (37.2-46.3); HGB 14.1 g/dL (12.0-15.0); Lymphocytes # (A) 1.12 10*3/uL (0.90-5.00); Lymphocytes % (A) 14.3 %; MCH 31.4 pg (27.0-32.0); MCHC 34.1 g/dL (32.0-37.0); MCV 92.2 fL (80.0-97.0); Monocytes # (A) 0.32 10*3/uL (0.20-1.00); Monocytes % (A) 4.1 %; Neutrophils # (A) 6.26 10*3/uL (1.80-7.70); Neutrophils % (A) 80.0 %; Platelet Count 170 10*3/uL (140-440); RBC 4.49 10*6/uL (4.10-5.20); RDW 13.2 % (11.5-14.5); WBC 7.82 10*3/uL (4.50-10.00)
[2024-08-24 10:14] LABS: Bilirubin,Urine Negative (Negative); Color,Urine Colorless; Glucose,Urine (UA) Negative (Negative); Ketones,Urine Negative (Negative); PH, Urine 7.0 (5.0-8.0); Protein,Urine Negative (Negative); Specific Gravity,Urine 1.015 (1.001-1.035)
[2024-08-24 10:15] LABS: Blood,Urine Negative (Negative); Leukocyte Esterase,Urine Negative (Negative); Nitrite,Urine Negative (Negative); Urobilinogen,Urine <2.0 mg/dL (<2.0)
[2024-08-24 10:21] LABS: ALT 20 U/L (4-34); African American GFR (CKD) >90 (>60 ml/min/1.73 sqM); Albumin 4.7 g/dL (3.5-5.0); Anion Gap 9 mmol/L; Blood Urea Nitrogen 15 mg/dL (7-17); Calcium 9.6 mg/dL (8.4-10.2); Carbon Dioxide 22 mmol/L (22-30); Chloride 109 mmol/L (98-107); Glucose 93 mg/dL (74-99); Non-African American GFR(CKD) >90 (>60 ml/min/1.73 sqM); Sodium 140 mmol/L (137-145); Total Protein 7.7 g/dL (6.3-8.2)
[2024-08-24 10:23] LABS: AST 31 U/L (14-36); Potassium 4.5 mmol/L (3.5-5.1)
[2024-08-24 10:24] LABS: Alkaline Phosphatase 92 U/L (38-126)
--- NOTE | 2024-08-24 10:26 | XR ---
EXAMINATION TYPE: XR chest 1V portable DATE OF EXAM: 08/24/2024 10:13 AM COMPARISON: Chest radiographs from 04/14/2021 TECHNIQUE: XR chest 1V portable Portable AP radiograph of the chest. CLINICAL INDICATION:Female, 69 years old with history of cough; FINDINGS: Lungs/Pleura: There is no evidence of pleural effusion, focal consolidation, or pneumothorax. Pulmonary vascularity: Unremarkable. Heart/mediastinum: Cardiomediastinal silhouette is unremarkable. Musculoskeletal: No acute osseous pathology. IMPRESSION: No acute cardiopulmonary disease/process. [facility], , 08/24/2024 10:23 AM
[2024-08-24 10:30] LABS: Barbiturate Screen,Urine Not Detected (NotDetected); Benzodiazepines Screen,Urine Not Detected (NotDetected); Opiate Screen,Urine Not Detected (NotDetected); Oxycodone Screen, Urine Not Detected (NotDetected); Phencyclidine Screen,Urine Not Detected (NotDetected); Tricyclic Antidepressant,Urine Not Detected (NotDetected); Urn Cannabinoid Scrn Not Detected (NotDetected)
[2024-08-24 10:46] LABS: RSV Not Detected (Not Detectd)
--- NOTE | 2024-08-24 11:51 | CT ---
EXAMINATION TYPE: CT brain wo con CT DLP: 1116 mGycm, Automated exposure control for dose reduction was used. DATE OF EXAM: 08/24/2024 11:22 AM COMPARISON: CT IAC 10/17/2022 CLINICAL INDICATION:Female, 69 years old with history of dizziness, right ear/mastoid pain, Vertigo/d izziness, right ear/mastoid pain. TECHNIQUE: Brain: Multiple axial CT images of the brain were obtained without IV contrast. . Coronal and sagitta l reformats reviewed. FINDINGS: Brain: Extra-axial spaces: No abnormal extra-axial fluid collections. Ventricular system: Within normal limits Cerebral parenchyma: No acute intraparenchymal hemorrhage or mass effect. The pimentel-white junction is well differentiated. Cerebellum: Unremarkable. Mass effect: No evidence of midline shift. Intracranial vasculature: Atherosclerotic calcifications of the intracranial vessels. Soft tissues: Normal. Calvarium/osseous structures: No depressed skull fracture. Benign hyperostosis frontalis noted. Paranasal sinuses and mastoid air cells: Clear Visualized orbits: Orbital contents are intact. IMPRESSION: No acute intracranial process. [facility], , 08/24/2024 11:49 AM
--- NOTE | 2024-08-24 11:56 | CT ---
EXAMINATION TYPE: CT angio head neck CT DLP: 385.6 mGycm, Automated exposure control for dose reduction was used. DATE OF EXAM: 08/24/2024 11:33 AM COMPARISON: CT brain 08/24/2024. CLINICAL INDICATION:Female, 69 years old with history of dizzy/vertigo; PHH, Vertigo/dizziness, right ear/mastoid pain. TECHNIQUE: Axially acquired helical CT angiogram of the head and neck was obtained with contrast util izing 75 cc of [id number]-370 administered intravenously. Axial images are supplemented with 3D reconstru ctions which were post-processed at an independent workstation. NASCET criteria used. MIP imaging performed on a separate workstation and submitted for review. FINDINGS: CTA HEAD: No evidence of acute intracranial hemorrhage, mass effect, or midline shift. The ventricles, sulci, a nd cisterns are unremarkable. The visualized portions of the internal carotid arteries, middle cerebral arteries, anterior cerebral arteries, and posterior cerebral arteries are patent. origin of the left INSTRUCTIONAL TECHNOLOGIST. The basilar and vertebral arteries are patent. CTA NECK: Right Carotid System: The common carotid artery and external carotid artery are patent. The carotid bifurcation demonstrate s no evidence of hemodynamically significant stenosis. The remaining portions of the internal carotid artery demonstrate normal size without significant narrowing. Left Carotid System: The common carotid artery and external carotid artery are patent. The carotid bifurcation demonstrate s no evidence of hemodynamically significant stenosis. Minimal calcified plaque involving the proxima l left internal carotid artery. The remaining portions of the internal carotid artery demonstrate nor mal size without significant narrowing. Vertebral arteries are patent without evidence hemodynamically significant stenosis. There is a three-vessel aortic arch. The origins of the great vessels are patent. No evidence of hemo dynamically significant stenosis. Mild multilevel degenerative disc disease of the lower cervical spine. Subcentimeter left thyroid lob e hypodense nodule. Bilateral palatine tonsilliths. IMPRESSION: 1. No evidence of dissection of the cervical internal carotid arteries or vertebral arteries or any e vidence of significant stenosis at the carotid bifurcations. 2. No evidence of high-grade stenosis or intracranial aneurysm. [facility], , 08/24/2024 11:54 AM
--- NOTE | 2024-08-24 12:48 | ED ---
General Adult HPI - General Chief complaint: Dizziness Stated complaint: Dizziness/Vomiting Time Seen by Provider: 08/24/24 09:05 Source: patient, RN notes reviewed, old records reviewed Mode of arrival: wheelchair Limitations: no limitations - History of Present Illness Initial comments: 69-year-old female presents emergency department complaining of dizziness. Seems to be across between lightheadedness as well as vertigo. States that with certain head movements she becomes lightheaded and dizzy and has been throwing up for the last day. Was previously on meclizine but currently is not. Has a history of chronic right ear issues and is in between ENTs currently. States that she has been having her acute on chronic pain in the right ear and feeling of fullness. Denies any new cough or congestion. Denies any fevers or chills. Denies any headaches. Denies any head injuries. Presents for further evaluation at this time. He has no significant cardiac history. Does endorse some pain around the right ear and behind the right ear on the bone. - Related Data Home Medications Medication Instructions Recorded Confirmed Cetirizine HCl [Zyrtec Chewable] 10 mg PO DAILY PRN 01/21/14 07/19/22 HYDROcodone/APAP 5-325MG [[place] 5] 1 each PO Q6HR PRN 01/21/14 07/19/22 ALPRAZolam [Xanax] 0.25 mg PO TID PRN 07/19/22 07/19/22 Apixaban [Eliquis] 5 mg PO BID 07/19/22 07/19/22 Fluvastatin Sodium [Fluvastatin ER] 80 mg PO HS 07/19/22 07/19/22 valACYclovir HCL [Valacyclovir] 1,000 mg PO DAILY PRN 07/19/22 07/19/22 Previous Rx's Medication Instructions Recorded HYDROcodone/APAP 5-325MG [[place] 1 tab PO Q6HR PRN 3 Days #12 tab 08/01/24 5-325] methylPREDNISolone Dose Pack 4 mg PO DIRECTED #1 packet 08/01/24 [Medrol Dose Pack] traMADol HCL 50 mg PO Q6H 3 Days #12 tab 08/02/24 Meclizine [Antivert] 25 mg PO TID PRN 7 Days #21 tab 08/24/24 Allergies Allergy/AdvReac Type Severity Reaction Status Date / Time No Known Allergies Allergy Verified 08/24/24 08:16 Review of Systems ROS Statement: Those systems with pertinent positive or pertinent negative responses have been documented in the HPI. Review of Systems: CONST: Denies fever EYES: Denies blurry vision ENT: Denies nasal congestion C/V: Denies Chest pain RESP: Denies shortness of breath GI: Denies abdominal pain : Denies dysuria SKIN: Denies rash. MSK: Denies joint pain. NEURO: Endorses dizziness ROS Other: All systems not noted in ROS Statement are negative. Past Medical History Past Medical History: Hyperlipidemia, Supraventricular Tachycardia (SVT) Additional Past Medical History / Comment(s): WAS ADMITTED TO [facility] ON 07/[facility]/22 & D/C ON 07/17/22,WITH SVT (ALL LAB/TESTS NORMAL) STARTED ON ELIQUIS. NORMALLY HAS A SLOW HEART RATE. OTHER EPISODES OF SVT. History of Any Multi-Drug Resistant Organisms: None Reported Past Surgical History: Tubal Ligation Additional Past Surgical History / Comment(s): cardiac ablation 2004. SALIVA GLAND REMOVED. Past Anesthesia/Blood Transfusion Reactions: Postoperative Nausea & Vomiting (PONV) Past Psychological History: Anxiety Smoking Status: Former smoker Past Alcohol Use History: None Reported Past Drug Use History: None Reported - Past Family History Mother Family Medical History: Deep Vein Thrombosis (DVT) General Exam - General Exam Comments Initial Comments: General: Appears in no acute distress. HEAD: Normal with no signs of head trauma. EYES: PERRLA, EOMI, conjunctiva normal, no discharge. No nystagmus ENT: Hearing grossly intact, normal oropharynx. Some general tenderness around the right ear without any obvious focal mastoid tenderness or external ear tenderness. Bilateral tympanic membranes within acceptable limits except right ear is full of what appears to be earwax. Cannot visualize full TM. RESPIRATORY: Clear breath sounds bilaterally. No wheezes, rales, or rhonchi. C/V: Regular rate and rhythm. S1 and S2 auscultated, no edema, peripheral pulses 2+ and intact throughout ABD: Abd is soft, nontender, nondistended EXT: Normal range of motion, no obvious deformity SKIN: No rashes or lesions observed on exposed skin. NEURO: Alert and oriented x 4. No focal sensory or strength deficits. NIH is 0. GCS 15. No nystagmus appreciated. Limitations: no limitations Course Vital Signs 08/24/24 08/24/24 08/24/24 08:16 12:10 13:10 Temperature 97.6 F 97.6 F Pulse Rate 65 48 L 56 L Respiratory 18 18 19 Rate Blood Pressure 128/72 116/68 125/67 O2 Sat by Pulse 100 99 99 Oximetry Medical Decision Making - Medical Decision Making Was pt. sent in by a medical professional or institution (, PA, BOX[employer] WEIGHER, urgent care, hospital, or [facility]...) When possible be specific @ -No Did you speak to anyone other than the patient for history (EMS, parent, family, police, friend...)? What history was obtained from this source @ -No Did you review nursing and triage notes (agree or disagree)? Why? @ -I reviewed and agree with nursing and triage notes Were old charts reviewed (outside hosp., previous admission, EMS record, old EKG, old radiological studies, urgent care reports/EKG's, [facility] records)? Report findings @ -No old charts were reviewed Differential Diagnosis (chest pain, altered mental status, abdominal pain women, abdominal pain men, vaginal bleeding, weakness, fever, dyspnea, syncope, headache, dizziness, GI bleed, back pain, seizure, CVA, palpatations, mental health, musculoskeletal)? @ -Differential Dizziness: Benign paroxysmal positional Vertigo, Meniere's disease, otitis media, acoustic neuroma, vertebrobasilar insufficiency, cerebellar stroke, encephalitis, hypovolemic, arrhythmia, coronary artery syndrome, anemia, this is not meant to be an all-inclusive list EKG interpreted by me (3pts min.). @ -As above X-rays interpreted by me (1pt min.). @ -Chest x-ray shows no obvious acute cardiopulmonary process per CT interpreted by me (1pt min.). @ -CT brain reveals no obvious acute intracranial process. CT angiogram head and neck reveals no obvious acute large vessel occlusion or acute process. U/S interpreted by me (1pt. min.). @ -None done What testing was considered but not performed or refused? (CT, X-rays, U/S, labs)? Why? @ -None What meds were considered but not given or refused? Why? @ -None Did you discuss the management of the patient with other professionals (professionals i.e. , PA, [employer]HER, lab, RT, psych nurse, social group worker, process control programmer, teacher, second officer, briefcase sewer)? Give summary @ -No Was smoking cessation discussed for >3mins.? @ -No Was critical care preformed (if so, how long)? @ -No Were there social determinants of health that impacted care today? How? (Homelessness, low income, unemployed, alcoholism, drug addiction, transportation, low edu. Level, literacy, decrease access to med. care, longterm, rehab)? @ -No Was there de-escalation of care discussed even if they declined (Discuss DNR or withdrawal of care, Hospice)? DNR status @ -No What co-morbidities impacted this encounter? (DM, HTN, Smoking, COPD, CAD, Cancer, CVA, ARF, Chemo, Hep., AIDS, mental health diagnosis, sleep apnea, morbid obesity)? @ -Chronic right ear fullness/pain/congestion Was patient admitted / discharged? Hospital course, mention meds given and route, prescriptions, significant lab abnormalities, going to OR and other p ertinent info. @ -Patient presents with dizziness. Does have a remote history of dizziness and vertigo with previous need for meclizine but has been multiple years. He has been dealing with chronic right ear issues for multiple months to a year. We will obtain CT imaging to rule out possible stroke. NIH is 0. She will be given IV meclizine and fluids. She is also given partial migraine cocktail. We will also obtain laboratory studies at her general. Patient was in agreement this plan. EKG shows no signs of acute ischemia. Imaging is all negative for any obvious acute process. Laboratory studies are all within acceptable limits. I discussed results with the patient. No evidence of acute infectious process, acute stroke. Her symptoms are resolved and she has been walking around the department. Patient will be discharged home at this time. I do suspect some inner ear pathology that is somewhat chronic for the patient considering her chronic issues with the right ear. She expressed understanding. Recommend she attempt to obtain a ENT follow-up with a different ENT as she does not want to see Dr. Payne. She otherwise was in agreement this plan for discharge. Give n a prescription for meclizine. I will provide the patient with a prescription for meclizine. I instructed the patient to follow up with their PCP in the next 1-3 days. I explained that the patient should return to the emergency department if they experience any worsening symptoms. Strict return precautions were discussed with the patient. The patient expressed understanding of these instructions. I answered all questions that the patient had. The patient was discharged home in good condition with their prescriptions and follow up information. Undiagnosed new problem with uncertain prognosis? @ -No Drug Therapy requiring intensive monitoring for toxicity (Heparin, Nitro, Insulin, Cardizem)? @ -No Were any procedures done? @ -No Diagnosis/symptom? @ -Dizziness, resolved Acute, or Chronic, or Acute on Chronic? @ -Acute Uncomplicated (without systemic symptoms) or Complicated (systemic symptoms)? @ -Uncomplicated Side effects of treatment? @ -No Exacerbation, Progression, or Severe Exacerbation? @ -No Poses a threat to life or bodily function? How? (Chest pain, [place], [place], pneumonia, PE, COPD, DKA, ARF, appy, cholecystitis, CVA, Diverticulitis, Homicidal, Suicidal, threat to staff... and all critical care pts) @ -Unlikely at this time - Lab Data Result diagrams: 08/24/24 09:56 08/24/24 09:56 Lab Results 08/24/24 08/24/24 08/24/24 Range/Units 09:49 09:49 09:56 WBC 7.82 (4.50-10.00) 10*3/uL RBC 4.49 (4.10-5.20) 10*6/uL Hgb 14.1 (12.0-15.0) g/dL Hct 41.4 (37.2-46.3) % MCV 92.2 (80.0-97.0) fL MCH 31.4 (27.0-32.0) pg MCHC 34.1 (32.0-37.0) g/dL Plt Count 170 (140-440) 10*3/uL MPV 11.4 (9.5-12.2) fL Immature Gran % (Auto) 0.3 % Neutrophils % 80.0 % Lymphocytes % 14.3 % Monocytes % 4.1 % Eosinophils % 0.8 % Basophils % 0.5 % Immature Gran # 0.02 (0.00-0.04) 10*3/uL Neutrophils # 6.26 (1.80-7.70) 10*3/uL Lymphocytes # 1.12 (0.90-5.00) 10*3/uL Monocytes # 0.32 (0.20-1.00) 10*3/uL Eosinophils # 0.06 (0.04-0.35) 10*3/uL Basophils # 0.04 (0.00-0.10) 10*3/uL Sodium (137-145) mmol/L Potassium (3.5-5.1) mmol/L Chloride (98-107) mmol/L Carbon Dioxide (22-30) mmol/L Anion Gap mmol/L BUN (7-17) mg/dL Creatinine (0.52-1.04) mg/dL Est GFR (CKD-EPI)AfAm (>60 ml/min/1.73 sqM) Est GFR (CKD-EPI)NonAf (>60 ml/min/1.73 sqM) Glucose (74-99) mg/dL Calcium (8.4-10.2) mg/dL Total Bilirubin (0.2-1.3) mg/dL AST (14-36) U/L ALT (4-34) U/L Alkaline Phosphatase (38-126) U/L Total Protein (6.3-8.2) g/dL Albumin (3.5-5.0) g/dL Procalcitonin 0.04 (0.02-0.50) ng/mL Urine Color Urine Appearance (Clear) Urine pH (5.0-8.0) Ur Specific [place] (1.001-1.035) Urine Protein (Negative) Urine Glucose (UA) (Negative) Urine Ketones (Negative) Urine Blood (Negative) Urine Nitrite (Negative) Urine Bilirubin (Negative) Urine Urobilinogen (<2.0) mg/dL Ur Leukocyte Esterase (Negative) Urine Opiates Screen (NotDetected) Ur Oxycodone Screen (NotDetected) Urine Methadone Screen (NotDetected) Ur Barbiturates Screen (NotDetected) U Tricyclic Antidepress (NotDetected) Ur Phencyclidine Scrn (NotDetected) Ur Amphetamines Screen (NotDetected) U Methamphetamines Scrn (NotDetected) U Benzodiazepines Scrn (NotDetected) Urine Cocaine Screen (NotDetected) U Marijuana (THC) Screen (NotDetected) Influenza Type A (PCR) Not Detected (Not Detectd) Influenza Type B (PCR) Not Detected (Not Detectd) RSV (PCR) Not Detected (Not Detectd) SARS-CoV-2 (PCR) Not Detected (Not Detectd) 08/24/24 08/24/24 Range/Units 09:56 09:56 WBC (4.50-10.00) 10*3/uL RBC (4.10-5.20) 10*6/uL Hgb (12.0-15.0) g/dL Hct (37.2-46.3) % MCV (80.0-97.0) fL MCH (27.0-32.0) pg MCHC (32.0-37.0) g/dL Plt Count (140-440) 10*3/uL MPV (9.5-12.2) fL Immature Gran % (Auto) % Neutrophils % % Lymphocytes % % Monocytes % % Eosinophils % % Basophils % % Immature Gran # (0.00-0.04) 10*3/uL Neutrophils # (1.80-7.70) 10*3/uL Lymphocytes # (0.90-5.00) 10*3/uL Monocytes # (0.20-1.00) 10*3/uL Eosinophils # (0.04-0.35) 10*3/uL Basophils # (0.00-0.10) 10*3/uL Sodium 140 (137-145) mmol/L Potassium 4.5 (3.5-5.1) mmol/L Chloride 109 H (98-107) mmol/L Carbon Dioxide 22 (22-30) mmol/L Anion Gap 9 mmol/L BUN 15 (7-17) mg/dL Creatinine 0.59 (0.52-1.04) mg/dL Est GFR (CKD-EPI)AfAm >90 (>60 ml/min/1.73 sqM) Est GFR (CKD-EPI)NonAf >90 (>60 ml/min/1.73 sqM) Glucose 93 (74-99) mg/dL Calcium 9.6 (8.4-10.2) mg/dL Total Bilirubin 1.2 (0.2-1.3) mg/dL AST 31 (14-36) U/L ALT 20 (4-34) U/L Alkaline Phosphatase 92 (38-126) U/L Total Protein 7.7 (6.3-8.2) g/dL Albumin 4.7 (3.5-5.0) g/dL Procalcitonin (0.02-0.50) ng/mL Urine Color Colorless Urine Appearance Clear (Clear) Urine pH 7.0 (5.0-8.0) Ur Specific [place] 1.015 (1.001-1.035) Urine Protein Negative (Negative) Urine Glucose (UA) Negative (Negative) Urine Ketones Negative (Negative) Urine Blood Negative (Negative) Urine Nitrite Negative (Negative) Urine Bilirubin Negative (Negative) Urine Urobilinogen <2.0 (<2.0) mg/dL Ur Leukocyte Esterase Negative (Negative) Urine Opiates Screen Not Detected (NotDetected) Ur Oxycodone Screen Not Detected (NotDetected) Urine Methadone Screen Not Detected (NotDetected) Ur Barbiturates Screen Not Detected (NotDetected) U Tricyclic Antidepress Not Detected (NotDetected) Ur Phencyclidine Scrn Not Detected (NotDetected) Ur Amphetamines Screen Not Detected (NotDetected) U Methamphetamines Scrn Not Detected (NotDetected) U Benzodiazepines Scrn Not Detected (NotDetected) Urine Cocaine Screen Not Detected (NotDetected) U Marijuana (THC) Screen Not Detected (NotDetected) Influenza Type A (PCR) (Not Detectd) Influenza Type B (PCR) (Not Detectd) RSV (PCR) (Not Detectd) SARS-CoV-2 (PCR) (Not Detectd) - EKG Data -: EKG Interpreted by Me EKG Comments: 12-lead Electrocardiogram Interpretation Note EKG was reviewed and interpreted by myself. 12-lead ECG performed at 0836 is interpreted by me as revealing sinus bradycardia at a rate of 49 beats per minute. [place] is normal. NM interval is 159 ms, QRS duration is 92 ms, QTc is 420 ms.. There were no ST or T wave abnormalities to suggest myocardial ischemia or injury. R wave progression across the precordium was satisfactory. By my interpretation this EKG is non-diagnostic for acute ischemia. Disposition Clinical Impression: Dizziness Disposition: HOME SELF-CARE Condition: Good Instructions (If sedation given, give patient instructions): Dizziness (ED) Prescriptions: Meclizine [Antivert] 25 mg PO TID PRN 7 Days #21 tab PRN Reason: Vertigo Is patient prescribed a controlled substance at d/c from ED?: No Referrals: Colt Casper MD [Primary Care Provider] - 1-2 days Time of Disposition: 12:30
[2024-08-24 13:12] VITALS: BP 125/67; PULSE 56; RESP 19
== END 2024-08-24 13:20 | disposition home or self-care (01) ==
LOC: EC 08:06
DX: R42 Dizziness and giddiness (principal); H92.01 Otalgia, right ear; G89.29 Other chronic pain; Z87.891 Personal history of nicotine dependence
CPT/HCPCS: 36415; 93005; 80053; 85025; 81003; 80306; 84145; 87636; 71045; 70496; 70450; 70498; 99285; 96374; 96375; 96361; J1200; J2405; Q9967